=== PATIENT | male | born 1945 | race Caucasian/White ===

== ENCOUNTER 2023-03-09 07:36 | Day surgery (SDC) | payer OTHER ==
[~2023-03-09] VITALS: Ht 195.6 cm; Wt 95.5 kg
[~2023-03-09 07:36] MED LIST: NS 1,000 ML IV ONE; ROSU10TA6 PO
[2023-03-09] MEDS ORDERED: propofoL 200 MG/20 ML VIAL As Ordered ONE (09:10)
[2023-03-09] MEDS ORDERED: LIDOCAINE 2% 100MG/5ML SDV (FOR ANES.) As Ordered ONE (09:10)
[2023-03-09] MEDS ORDERED: GLYCOPYRROLATE INJ 0.2 MG/ML 2 ML VIAL As Ordered ONE (09:19)
[2023-03-09 10:22] VITALS: BP 131/83; O2SAT 98
== END 2023-03-09 11:12 | disposition home or self-care (01) ==
LOC: M OPP 07:36
PROVIDERS: ATTEND Internal Medicine Gastroenterology
DX: D12.2 Benign neoplasm of ascending colon (principal); K64.0 First degree hemorrhoids; K57.30 Diverticulosis of large intestine without perforation or abscess without bleeding; R19.5 Other fecal abnormalities; Z80.0 Family history of malignant neoplasm of digestive organs